=== PATIENT | female | born 1935 | race Caucasian/White ===

== ENCOUNTER → 2016-10-08 | Outpatient (CLI) | payer MEDICARE, OTHER ==
--- NOTE | 2016-10-08 14:26 | MM ---
Reason for exam: screening (asymptomatic). Baseline mammogram. History: Patient is postmenopausal. Physical Findings: Nurse did not find any significant physical abnormalities on exam. MG 3D Screening Mammo W/Cad Bilateral CC and MLO view(s) were taken. The breast tissue is heterogeneously dense. This may lower the sensitivity of mammography. Nodular density upper inner quadrant in the right breast for which additional views are recommended. Post operative lumpectomy upper outer quadrant right breast anterior third position. These results were verbally communicated with the patient and result sheet given to the patient on 10/08/16. ASSESSMENT: Incomplete: need additional imaging evaluation, BI-RAD 0 RECOMMENDATION: Special view mammogram of the right breast. If lesion persists on supplemental views, image directed ultrasound is recommended. [facility] will attempt to contact patient to return for supplemental views and ultrasound if indicated.
--- NOTE | 2016-10-08 14:31 | MM ---
Reason for exam: additional evaluation requested from abnormal screening. History: Patient is postmenopausal. Physical Findings: Breast exam preformed at baseline screening. MG 3D Work Up W/Cad RT Spot compression CC, spot compression MLO, and ML view(s) were taken of the right breast. The breast tissue is heterogeneously dense. This may lower the sensitivity of mammography. Density upper inner quadrant in the right breast persists. Ultrasound is recommended. These results were verbally communicated with the patient and result sheet given to the patient on 10/08/16. ASSESSMENT: Incomplete: need additional imaging evaluation, BI-RAD 0 RECOMMENDATION: Ultrasound of the right breast.
--- NOTE | 2016-10-08 14:35 | USB ---
Reason for exam: additional evaluation requested from abnormal screening. History: Patient is postmenopausal. US Breast Workup Limited RT Right breast ultrasound demonstrates a 1.3 x 0.6 x 1.6cm oval, solid, hypoechoic lesion at 2 o'clock at port incision, probable scar. These results were verbally communicated with the patient and result sheet given to the patient on 10/08/16. ASSESSMENT: Probably benign, BI-RAD 3 RECOMMENDATION: Ultrasound of the right breast in 6 months.
--- NOTE | 2016-10-08 15:15 | BD ---
EXAMINATION TYPE: MG DEXA axial skeleton. DATE OF EXAM: 10/08/2016 2:07 PM COMPARISON: NONE CLINICAL HISTORY: N95.1 POST-MENOPAUSAL SYMP Height: 50.3 Weight: 152 FRAX RISK QUESTIONS: Alcohol (3 or more units per day): NO Family History (Parent hip fracture): UNKNOWN Glucocorticoids (More than 3mos): YES (Ex: prednisone, prednisolone, methylprednisolone, dexamethasone, and hydrocortisone). History of Fracture in Adulthood: YES Secondary Osteoporosis: NO 1. Type 1 Diabetes: NO 2. Hyperthyroidism: NO 3. Menopause before 45: NO 4. Malnutrition: NO 5. Chronic liver disease: STENT IN LIVER DUE TO LYMPHOMA Rheumatoid Arthritis: NO Current Tobacco Use: YES RISK FACTORS HISTORY OF: History of Wrist Fracture: RT WRIST When: AT 78 Surgery to Wrist (right): YES When: AT 78 YRS OLD Other Fractures since Age 52: NO Family History of Osteoporosis: NONE KNOWN Smoke tobacco: YES, 3-4 CIGS DAILY Drink Alcohol: SOCIAL Active: BEST SHE CAN Diet low in dairy products/other sources of calcium: YES, LACTOSE INTOLERANT Postmenopausal woman: HYST AT 50 YRS OLD Lost more than 2 inches in height since high school: YES Frequent falls: UNSTEADY Adrenal Insufficiency: NO MEDICATIONS: Prednisone or other steroids: YES, PREDNISONE AND OTHER STEROIDS How Long: FOR MANY YRS Additional Medications: BP MEDS, HX OF CHEMO FOR LYMPHOMA Additional History: LYMPHOMA, COPD, RIGHT BREAST CANCER, STATIN FOR CHOLESTEROL, EXAM MEASUREMENTS: Bone mineral densitometry was performed using the [employer]. Bone mineral density as measured about the Lumbar spine is: ----- L1-L4(G/cm2): 1.324 T Score Values are as follows: ----- L1: 0.4 ----- L2: 0.1 ----- L3: 2.8 ----- L4: 1.4 ----- L1-L4: 1.2 Bone mineral density FIRST BONE DENSITY.....BASELINE Bone mineral density about the R hip (g/cm2): 0.896 Bone mineral density about the L hip (g/cm2): 0.874 T Score values are as follows: -----R Neck: -1.8 -----L Neck: -2.0 -----R Total: -0.9 -----L Total: -1.1 Bone mineral density IS A BASELINE STUDY FRAX %'S: 19.9% CHANCE FOR A MAJOR OSTEOPOROTIC FX AND 7.4% CHANCE FOR A HIP FX.....PROBABILITY OF FX IN 10 YRS TIME IMPRESSION: Osteopenia (T Score between -2.5 and -1 as noted by T score values There is slightly increased risk of fracture and the patient may be considered for treatment. Re-Screen 2-5 years. FOR BOTH OF HER HIPS NOTE: T-SCORE=SD OF THE YOUNG ADULT MEAN.
== END | disposition home or self-care (01) ==
LOC: RADMAMWWP 11:47
PROVIDERS: ATTEND Internal Medicine Hematology & Oncology
DX: Z12.31 Encounter for screening mammogram for malignant neoplasm of breast (principal); N95.1 Menopausal and female climacteric states; M85.80 Other specified disorders of bone density and structure, unspecified site; R92.2 Inconclusive mammogram
CPT/HCPCS: 77080; 77063; 76642; G0202; G0206; G0279

== ENCOUNTER 2016-10-24 09:09 | Day surgery (SDC) | payer MEDICARE, OTHER ==
[2016-10-23 08:46] VITALS: BMI 28.3
[~2016-10-24 09:09] MED LIST: LACTATED RINGERS 1,000 ML IV SCH
[2016-10-24 10:36] VITALS: RESP 16; TEMP 98.7
[2016-10-24 10:41] LABS: Glucose,Whole Blood 81 mg/dL (75-99)
[2016-10-24] MEDS ORDERED: LIDOCAINE 1% 20 ML VIAL (10MG/ML) FOR IV START INTRADERMA ONE (10:43)
[2016-10-24] MEDS ORDERED: PROPOFOL 10 MG/ML 20 ML VIAL IV ONE (11:07)
--- NOTE | 2016-10-24 11:20 | P.PCN ---
Date of Procedure: 10/24/16 Preoperative Diagnosis: Postoperative Diagnosis: Procedure(s) Performed: BRIEF HISTORY: Patient is a 80-year-old, pleasant, white female, Scheduled for an upper endoscopy with the CBD stent removal today. She presented with obstructive jaundice secondary to extrinsic compression of the distal common bile duct related to non-Hodgkin's lymphoma in March 2016. Subsequently she underwent chemotherapy and illness in clinical remission. Her LFTs have been within normal limits. She is scheduled for EGD with CBD stent removal today PROCEDURE PERFORMED: Esophagogastroduodenoscopy. 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 PROCEDURE: After informed consent was obtained, the patient was brought into the endoscopy unit. IV sedation was administered by Anesthesia under continuous monitoring. Initially the Olympus GIF-140 video endoscope was inserted into the mouth. Esophagus intubated without any difficulty. It was gradually advanced into the stomach and duodenum and carefully examined. The bulb and the second part of the duodenum appeared normal. in the second part of the duodenum the previously placed CBD stent was identified. Using a snare the stent was removed without any difficulty. The scope at this time was withdrawn to the stomach, adequately insufflated with air, and upon careful examination, mucosa of the antrum, had mild diffuse gastritis. The body, cardia and the fundus appeared normal. The scope was then withdrawn into the esophagus. The GE junction was located at 39 cm from the incisors. There was one superficial erosion at the GE junction consistent with LA grade A reflux esophagitis. The rest of theesophagus appeared normal and the patient tolerated the procedure well. IMPRESSION: 1. CBD stent removal as described above 2. Mild antral gastritis and LA grade A reflux esophagitis RECOMMENDATIONS: The findings of this examination were discussed with the patient as well as her family. She was advised to follow with Dr. Webber as scheduled. Implants: Indications for Procedure: Operative Findings: Description of Procedure:
[2016-10-24 11:46] VITALS: BP 147/91; PULSE 79
== END 2016-10-24 12:08 | disposition home or self-care (01) ==
LOC: ORWHC2ENDO 09:09
PROVIDERS: ATTEND Internal Medicine Gastroenterology
DX: Z45.89 Encounter for adjustment and management of other implanted devices (principal); K29.70 Gastritis, unspecified, without bleeding; K21.0 Gastro-esophageal reflux disease with esophagitis; I10 Essential (primary) hypertension; E78.5 Hyperlipidemia, unspecified; G47.33 Obstructive sleep apnea (adult) (pediatric); J44.9 Chronic obstructive pulmonary disease, unspecified; M10.9 Gout, unspecified; F03.90 Unspecified dementia, unspecified severity, without behavioral disturbance, psychotic disturbance, mood disturbance, and anxiety; Z79.899 Other long term (current) drug therapy; Z88.6 Allergy status to analgesic agent; Z88.5 Allergy status to narcotic agent; C85.90 Non-Hodgkin lymphoma, unspecified, unspecified site; Z92.21 Personal history of antineoplastic chemotherapy
CPT/HCPCS: 44799; J2704

== ENCOUNTER → 2017-07-15 | Outpatient (CLI) | payer MEDICARE, OTHER ==
--- NOTE | 2017-07-15 14:03 | MM ---
Reason for exam: follow-up at short interval from prior study. Last mammogram was performed 9 months ago. History: Patient is postmenopausal. Physical Findings: Nurse did not find any significant physical abnormalities on exam. MG 3D Diag Mammo W/Cad GINA Bilateral CC and MLO view(s) were taken. Prior study comparison: October 08, 2016, right breast MG 3d work up w/cad RT. October 08, 2016, bilateral MG 3d screening mammo w/cad. June 02, 2015, mammogram. Post surgical scar upper outer right breast. Previous medial right breast density has resolved. Scattered bilateral calcifications are unchanged. These results were verbally communicated with the patient and result sheet given to the patient on 07/15/17. ASSESSMENT: Benign, BI-RAD 2 RECOMMENDATION: Routine screening mammogram of both breasts in 1 year.
== END | disposition home or self-care (01) ==
LOC: RADMAMWWP 12:48
PROVIDERS: ATTEND Internal Medicine Hematology & Oncology
DX: R92.8 Other abnormal and inconclusive findings on diagnostic imaging of breast (principal); Z85.3 Personal history of malignant neoplasm of breast
CPT/HCPCS: 77066; G0279

== ENCOUNTER → 2018-08-19 | Outpatient (CLI) | payer MEDICARE, OTHER ==
--- NOTE | 2018-08-19 13:53 | MM ---
Reason for exam: additional evaluation requested from prior study. Last mammogram was performed 1 year and 1 month ago. History: Patient is postmenopausal, has history of breast cancer at age 80, and has history of other cancer at age 80. Malignant lumpectomy of the right breast, 2017. Physical Findings: Nurse did not find any significant physical abnormalities on exam. MG 3D Diag Mammo W/Cad GINA Bilateral CC and MLO view(s) were taken. Prior study comparison: July 15, 2017, bilateral MG 3d diag mammo w/cad GINA. October 08, 2016, right breast MG 3d work up w/cad RT. The breast tissue is heterogeneously dense. This may lower the sensitivity of mammography. Benign appearing bilateral calcifications. Post therapy change on the right. These results were verbally communicated with the patient and result sheet given to the patient on 08/19/18. ASSESSMENT: Benign, BI-RAD 2 RECOMMENDATION: Follow-up diagnostic mammogram of both breasts in 1 year.
== END | disposition home or self-care (01) ==
LOC: RADMAMWWP 12:45
PROVIDERS: ATTEND Internal Medicine Hematology & Oncology
DX: Z08 Encounter for follow-up examination after completed treatment for malignant neoplasm (principal); Z85.3 Personal history of malignant neoplasm of breast
CPT/HCPCS: 77066; G0279; 77062

== ENCOUNTER → 2018-10-09 | Outpatient (CLI) | payer MEDICARE, OTHER ==
--- NOTE | 2018-10-09 21:44 | BD ---
EXAMINATION TYPE: Axial Bone Density DATE OF EXAM: 10/09/2018 COMPARISON: 2017 CLINICAL HISTORY: Height: 61 inches Weight: 162 FRAX RISK QUESTIONS: Alcohol (3 or more units per day): no Family History (Parent hip fracture): no Glucocorticoids (More than 3mos): no (Ex: prednisone, prednisolone, methylprednisolone, dexamethasone, and hydrocortisone). History of Fracture in Adulthood: yes Secondary Osteoporosis: 1. Type 1 Diabetes: no 2. Hyperthyroidism: no 3. Menopause before 45: complete hysterectomy age 47 4. Malnutrition: no 5. Chronic liver disease: stent in liver due to lymphoma Rheumatoid Arthritis: no Current Tobacco Use: yes RISK FACTORS HISTORY OF: History of Wrist Fracture: yes When: age 78 Surgery to Wrist (right): yes When: age 78 Family History of Osteoporosis: none known Active: yes Diet low in dairy products/other sources of calcium: a least one serving a day Postmenopausal woman: yes Take estrogen and/or progesterone medications: no Lost more than 2 inches in height since high school: no Frequent falls: no Poor Health: somewhat Hyperparathyroidism: no Adrenal Insufficiency: no MEDICATIONS: Prednisone or other steroids: not now How Long: "many years", but been off this med for a long time Thyroid Medications: no Osteoporosis Medications: no Additional Medications: blood pressure med , gout med, cholesterol med Additional History: breast CA age 79 (chemo), Non-Hodgkins Lymphoma EXAM MEASUREMENTS: Bone mineral densitometry was performed using the [facility]. Bone mineral density as measured about the Lumbar spine is: ----- L1-L4(G/cm2): 1.344 T Score Values are as follows: ----- L2: 0.3 ----- L3: 2.7 ----- L4: 2.0 ----- L1-L4: 1.4 Bone mineral density has: Increased 2.0% since study of: 10/08/2016 Bone mineral density about the R hip (g/cm2): 0.791 Bone mineral density about the L hip (g/cm2): 0.774 T Score values are as follows: -----R Neck: -1.8 -----L Neck: -1.9 -----R Total: -0.7 -----L Total: -1.0 Bone mineral density has: Increased 2.3% since study of: 10/08/2016 IMPRESSION: Osteopenia (T Score between -2.5 and -1). There is slightly increased risk of fracture and the patient may be considered for treatment. Re-Screen 2-5 years. NOTE: T-SCORE=SD OF THE YOUNG ADULT MEAN.
== END | disposition home or self-care (01) ==
LOC: RADBDWWP 12:31
PROVIDERS: ATTEND Internal Medicine Hematology & Oncology
DX: M85.851 Other specified disorders of bone density and structure, right thigh (principal); M85.852 Other specified disorders of bone density and structure, left thigh; C50.511 Malignant neoplasm of lower-outer quadrant of right female breast; Z79.890 Hormone replacement therapy
CPT/HCPCS: 77080

== ENCOUNTER → 2019-05-15 | Outpatient (CLI) | payer MEDICARE, OTHER ==
[~2019-05-15] MED LIST changes: +DENOSUMAB 60 MG/ML 1 ML SYRINGE SQ NR; -LACTATED RINGERS 1,000 ML IV SCH
[2019-05-15 15:38] VITALS: BP 138/75; PULSE 65; RESP 16; TEMP 97.8
== END | disposition home or self-care (01) ==
LOC: PROCWHC3 12:22
PROVIDERS: ATTEND Internal Medicine Hematology & Oncology
DX: C50.511 Malignant neoplasm of lower-outer quadrant of right female breast (principal); Z79.811 Long term (current) use of aromatase inhibitors
CPT/HCPCS: 96372; J0897